=== PATIENT | female | born 1990 | race Caucasian/White ===

== ENCOUNTER 2018-07-12 12:18 | Day surgery (SDC) | payer OTHER ==
[~2018-07-12] VITALS: Ht 177.8 cm; Wt 97.4 kg
[~2018-07-12 12:18] MED LIST: BUPIVACAINE 0.25% ONE; EPINEPHRINE 1 MG/ML, 1ML ONE
[2018-07-12] MEDS ORDERED: NONE PER PT (12:55)
[2018-07-12 12:57] VITALS: BP 138/82
[2018-07-12] MEDS ORDERED: ACETAMINOPHEN 500 MG TABLET PO ONE (13:00)
[2018-07-12] MEDS ORDERED: GABAPENTIN 300 MG CAPSULE PO ONE (13:00)
[2018-07-12] MEDS ORDERED: PLEASE ENTER HEIGHT AND WEIGHT MC SCH (13:00)
[2018-07-12] MEDS ORDERED: LACTATED RINGERS 1,000 ML IV SCH (13:18)
[2018-07-12 13:31] LABS: HCG UR SG 1.034 (1.003-1.030)
[2018-07-12] MEDS ORDERED: FENTANYL PF 250 MCG/5ML ONE (15:40)
[2018-07-12] MEDS ORDERED: MIDAZOLAM 1 MG/ML, 2ML ONE (15:40)
[2018-07-12] MEDS ORDERED: PROPOFOL 10 MG/ML, 20ML ONE (15:42)
[2018-07-12] MEDS ORDERED: GLYCOPYRROLATE 0.2MG/1ML, 5ML ONE (15:42)
[2018-07-12] MEDS ORDERED: NEOSTIGMINE 1 MG/ML, 10ML ONE (15:42)
[2018-07-12] MEDS ORDERED: ROCURONIUM 10MG/ML,5ML ONE (15:42)
[2018-07-12] MEDS ORDERED: ONDANSETRON 2MG/ML, 2ML ONE (15:42)
[2018-07-12] MEDS ORDERED: DEXAMETHASONE 4 MG/ML, 1ML ONE (15:42)
[2018-07-12] MEDS ORDERED: SUCCINYLCHOLINE 20 MG/ML, 10ML ONE (15:42)
[2018-07-12] MEDS ORDERED: CEFAZOLIN 1,000 MG ONE (15:42)
[2018-07-12] MEDS ORDERED: DIPHENHYDRAMINE 50 MG/ML, 1ML IVPush PRN (16:00)
[2018-07-12] MEDS ORDERED: LABETALOL 5MG/ML, 20ML IV PRN (16:00)
[2018-07-12] MEDS ORDERED: hydrALAzine 20 MG/ML, 1ML IV PRN (16:00)
[2018-07-12] MEDS ORDERED: OXYcodone 5 MG/5 ML ORAL.SOL UDC PO PRN (16:00)
[2018-07-12] MEDS ORDERED: ONDANSETRON 2MG/ML, 2ML IV PRN ×2 (16:00→20:00)
[2018-07-12] MEDS ORDERED: HYDROmorphone 1 MG/ML, 1ML IV PRN ×2 (16:00→20:00)
[2018-07-12] MEDS ORDERED: BUPIVACAINE 0.25% ONE (16:07)
[2018-07-12] MEDS ORDERED: EPINEPHRINE 1 MG/ML, 1ML ONE (16:07)
[2018-07-12] MEDS ORDERED: SCOPOLAMINE PATCH, 1.5MG PATCH.TD72 TD ONE (16:16)
[2018-07-12] MEDS ORDERED: KETOROLAC 30 MG/1 ML ONE (16:20)
[2018-07-12] MEDS ORDERED: OXYcodone 5 MG/5 ML ORAL.SOL UDC ONE (17:16)
[2018-07-12] MEDS ORDERED: FENTANYL PF 100 MCG/2ML ONE ×2 (17:16→17:46)
[2018-07-12] MEDS: FENTANYL PF 100 MCG/2ML IV PRN ×4 (17:19→18:14)
[2018-07-12] MEDS ORDERED: IBUPROFEN 600 MG TABLET PO PRN (20:00)
[2018-07-12] MEDS ORDERED: KETOROLAC 30 MG/1 ML IV PRN (20:00)
[2018-07-12] MEDS ORDERED: OXYcodone/APAP 5/325MG TABLET PO PRN (20:00)
[2018-07-12] MEDS ORDERED: HYDROcodone/APAP 5/325 TABLET PO PRN (20:00)
== END 2018-07-12 20:50 | disposition home or self-care (01) ==
LOC: OUT 12:18 → 4NOR 19:02 → OUT 20:50
PROVIDERS: ATTEND Obstetrics & Gynecology Female Pelvic Medicine and Reconstructive Surgery
DX: N94.10 Unspecified dyspareunia (principal); N94.6 Dysmenorrhea, unspecified; G43.909 Migraine, unspecified, not intractable, without status migrainosus; F17.210 Nicotine dependence, cigarettes, uncomplicated; D27.1 Benign neoplasm of left ovary; Z98.890 Other specified postprocedural states
CPT/HCPCS: 58661; 81025; 88305; J0171; J0330; J0690; J1100; J1885; J2250; J2405; J2704; J2710; J3010; J3490; J7120